=== PATIENT | male | born 1935 | race Caucasian/White ===

== ENCOUNTER → 2020-07-25 10:51 | Outpatient (CLI) | payer MEDICARE, SELFPAY ==
--- NOTE | 2020-07-25 | DI.US.S_ITS ---
PROCEDURE: US ABDOMEN COMPLETE INDICATIONS: GENERALIZED ABD PAIN TECHNIQUE: Real-time scanning was performed of the abdominal and retroperitoneal organs, with image documentation. COMPARISON: [facility], , ABDOMEN ACUTE SERIES, 07/31/2017, 20:19. FINDINGS: Liver: Liver is normal in size. There is a 9 millimeter echogenic lesion seen within the right lobe of the liver. There is a simple appearing cyst seen within the left lobe of the liver that measures up to 12 millimeters. The liver overall demonstrates a coarsened appearance. Gallbladder: No findings of gallstones or sludge are seen. The gallbladder wall is not thickened, measuring 3 mm or less. Incidental note is made of gallbladder wall adenomyomatosis. No specific pericholecystic fluid is seen. The sonographic Swanson sign is negative. Biliary ducts: Intrahepatic bile ducts are non-dilated. Extrahepatic bile duct caliber measures 4 mm. Normal is 6-7 mm or less in diameter, or 10 mm or less post-cholecystectomy. Pancreas: Visualized portions of the pancreas are sonographically normal. Spleen: Spleen is normal in size and homogeneous in echotexture. Kidneys: Kidneys are normal in size and echotexture. Right kidney measures 10.8 cm long; left kidney measures 11.1 cm long. No hydronephrosis. There is a 7 millimeter stone seen involving the right kidney. A 4 millimeter stone is seen involving the left kidney. No solid masses. However, the kidneys demonstrate a lobulated appearance. Aorta: Visualized aorta is normal in caliber at less than 3 cm. Iliacs: Proximal common iliac arteries are normal in caliber at less than 2.5 cm. IVC: Intrahepatic inferior vena cava is patent. Miscellaneous: No free abdominal fluid. IMPRESSION: The gallbladder demonstrates a normal sonographic appearance. No biliary dilatation is seen. Non-obstructing bilateral renal stones are seen. Lobulated kidneys are noted, without focal masses seen. Within the right liver, there is a 9 millimeter echogenic lesion, which likely represents a hemangioma. A 12 millimeter cyst is also seen left. Dictated by: Sanjiv Hicks M.D. on 07/25/2020 at 12:01 Approved by: Sanjiv Hicks M.D. on 07/25/2020 at 12:04
== END ==
PROVIDERS: PCP Family Medicine; Referring Provider Family Medicine; Visit Provider Family Medicine
DX: R10.84 Generalized abdominal pain (principal); N20.0 Calculus of kidney; K76.89 Other specified diseases of liver
CPT/HCPCS: 76700

== ENCOUNTER → 2020-08-30 11:25 | Outpatient (CLI) | payer MEDICARE, SELFPAY ==
[2020-08-02 14:13] VITALS: BMI 25.2
[2020-08-30 11:58] LABS: BUN Creatinine Ratio 13.4 (6-22); Blood Urea Nitrogen 16 mg/dL (9-20); Estimated Glomerular Filt Rate 58.1 mL/min (>60)
--- NOTE | 2020-08-30 12:41 | DI.CT.S_ITS ---
PROCEDURE: CT ABDOMEN PELVIS W CON INDICATIONS: rule out pelvic abscess TECHNIQUE: After the administration of intravenous contrast, 5 mm thick sections acquired from the diaphragm to the symphysis. 5 mm coronal and sagittal reformats were acquired. For radiation dose reduction, the following was used: automated exposure control, adjustment of mA and/or kV according to patient size. COMPARISON: [facility], CT, CT ABDOMEN PELVIS WO CON, 08/02/2020, 9:13. FINDINGS: Image quality: Excellent. ABDOMEN: Lung bases: Lung bases are clear. Centrilobular emphysema is seen. Heart size is enlarged. Pacemaker leads are seen. Solid organs: Liver is normal in size . Multiple hypodense areas are seen scattered throughout liver parenchyma measures up to 2.5 cm in size in lateral segment of left hepatic lobe and up to 2.1 cm in size in lateral periphery of right hepatic lobe . Finding is consistent with extensive liver metastasis given patient's history of rectal cancer. Gallbladder is within normal limits. Biliary system is non dilated. Pancreas enhances normally. Spleen is normal in size and enhancement. No adrenal nodules. Kidneys demonstrate normal size and enhancement, without hydronephrosis. 7.5 mm nonobstructing right renal calculus is seen, unchanged from prior study. Peritoneum and bowel: There is a small to moderate size hiatal hernia. No evidence of bowel obstruction. Patient is status post interval rectal mass removal and diverting ileostomy placement in left lower quadrant abdomen. No evidence of bowel obstruction. No gross abnormal bowel wall thickening. No free fluid or free air. Nodes and vessels: No retroperitoneal or mesenteric adenopathy by size criteria. Aorta and inferior vena cava are normal in size. Miscellaneous: Postsurgical changes are noted in anterior abdominal and pelvic wall. PELVIS: Genitourinary: Mild diffuse bladder wall thickening is again seen unchanged from prior study. No definite discrete bladder wall mass. Miscellaneous: No inguinal hernias or adenopathy. Brachytherapy seeds are noted in enlarged prostate gland. Bones: No suspicious bony lesions. No vertebral body compression fractures. Grade 1 anterolisthesis of L4 on L5 is seen. IMPRESSION: 1. Patient is status post interval resection of previously noted rectal mass with postsurgical changes. Diverting ileostomy is noted in left lower quadrant. No evidence of bowel obstruction. No free fluid or free air. 2. Numerous hypodense lesions scattered throughout liver parenchyma as described above, consistent with extensive liver metastases. 3. Nonobstructing stone in right kidney. No hydronephrosis. Mild diffuse bladder wall thickening. No discrete bladder wall mass. Brachytherapy seeds within prostate gland. Dictated by: Brad Herbert M.D. on 08/30/2020 at 12:04 Approved by: Brad Herbert M.D. on 08/30/2020 at 12:21
== END ==
PROVIDERS: PCP Family Medicine; Referring Provider Family Medicine; Visit Provider Surgery
DX: K91.89 Other postprocedural complications and disorders of digestive system (principal); K76.9 Liver disease, unspecified; N20.0 Calculus of kidney; J43.2 Centrilobular emphysema; K44.9 Diaphragmatic hernia without obstruction or gangrene; Z93.2 Ileostomy status; Z85.048 Personal history of other malignant neoplasm of rectum, rectosigmoid junction, and anus
CPT/HCPCS: 36415; 74177; 82565; 84520; Q9967

== ENCOUNTER 2020-10-02 14:20 | Observation (INO) | payer MEDICARE, SELFPAY ==
[2020-08-02 14:13] VITALS: BMI 25.2
[2020-10-02] VITALS (15 sets, daily range): BP systolic 116–160; BP diastolic 58–73; PULSE 66–93; RESP 14–31; TEMP 35.9–36.4; O2SAT 91–100; BMI 25.8; BMI 23.8
--- NOTE | 2020-10-02 | DI.CT.S_ITS ---
PROCEDURE: CT ABDOMEN PELVIS W CON INDICATIONS: r/o intra abdominal abscess TECHNIQUE: After the administration of intravenous contrast, 5 mm thick sections acquired from the diaphragm to the symphysis. 5 mm coronal and sagittal reformats were acquired. For radiation dose reduction, the following was used: automated exposure control, adjustment of mA and/or kV according to patient size. COMPARISON: [facility], CT, CT ABDOMEN PELVIS WO CON, 08/02/2020, 9:13. Merged With [facility], CT, CT ABDOMEN PELVIS W CON, 08/30/2020, 12:25. FINDINGS: Image quality: Excellent. ABDOMEN: Lung bases: There is mild atelectasis in the lung bases. Heart size is mildly enlarged. Pacemaker leads redemonstrated in the right ventricle. Solid organs: Multiple hypoattenuating masses are redemonstrated within the liver consistent with metastatic disease. These demonstrate interval increase in size, with a circulation representative mass in segment 2 of the left lobe measuring up to 3.3 x 3.3 cm compared to 2.8 x 2.6 cm previously. The gallbladder appears within normal limits without calcified gallstones. Biliary system is non-dilated. Pancreas enhances normally. No peripancreatic fat stranding or fluid collections. No pancreatic duct dilatation. The spleen is normal in size. No adrenal nodules. Kidneys demonstrate no hydronephrosis. There is a nonobstructing stone within the right kidney measuring up to 8 mm. Peritoneum and bowel: Postsurgical changes are redemonstrated status post distal colonic resection with a diverting left lower quadrant colostomy. The rectal stump demonstrates wall thickening and inflammatory fat stranding. There is an adjacent presacral thick-walled loculated collection suggestive of an abscess measuring approximately 4.2 x 2.6 cm in dimension. The fluid component within the collection is smaller in size compared to the prior study, now measuring 1.2 x 0.7 cm in transverse dimension. There is an adjacent loop of the distal ileum contiguous with this collection which demonstrates wall thickening. There is associated dilatation of the distal small bowel with small bowel fecalization compatible with a partial functional obstruction. There is extensive associated fat stranding. Nodes and vessels: No retroperitoneal or mesenteric adenopathy by size criteria. Aorta and inferior vena cava are normal in size. Miscellaneous: No ventral hernias. PELVIS: Genitourinary: There is mild bladder wall thickening posteriorly. Multiple radiation seeds are demonstrated within the prostate. Miscellaneous: No inguinal hernias or adenopathy. Bones: No suspicious bony lesions. No vertebral body compression fractures. IMPRESSION: 1. Postsurgical changes redemonstrated status post partial resection of the distal colon with a diverting left lower quadrant colostomy. 2. Rectal stump demonstrates inflammatory wall thickening and appears contiguous with a presacral thick-walled collection suggesting fistulization with a presacral abscess. Inflammatory changes involve a loop of the distal ileum with an associated partial functional obstruction. 3. Multiple hepatic mass lesions consistent with metastatic disease demonstrate interval increase in size. Dictated by: Joaquín Olson M.D. on 10/02/2020 at 19:03 Approved by: Joaquín Olson M.D. on 10/02/2020 at 19:21
--- NOTE | 2020-10-02 15:52 | PC.NURSE ---
Pt has recent colostomy. Per son, about two months ago. Reports intermittent bleeding from rectum ever since. Changes kamini pad 3-4 times a day. Doesn't state that anything increases or decreases bleeding. Does take coumadin daily. Denies pain. Ostomy with stool present. Denies changes in stool. Reports feeling off or different. I can't really describe it. Denies dizziness. Spouse in March and also recently lost a close friend. Feels his life has changed since this pointing to ostomy. And not as active as he used to be.
[2020-10-02 16:12] LABS: Add Manual Diff / Slide Review NO; Basophils Absolute Auto 100 /uL (0-100); Basophils Percent Auto 0.8 % (0-2); Eosinophils Absolute Auto 100 /uL (0-450); Eosinophils Percent Auto 0.7 % (2-4); Hematocrit 29.9 % (41-53); Hemoglobin 9.4 g/dL (13.5-17.5); Lymphocytes Absolute Auto 1600 /uL (1100-4500); Mean Corpuscular HGB Conc 31.4 % (30-36); Mean Corpuscular Volume 82.6 fL (80-100); Monocytes Absolute Auto 1200 /uL (0-900); Monocytes Percent Auto 8.5 % (3-14); Neutrophils Absolute Auto 11600 /uL (1500-7000); Platelet Count 478 X10^3/uL (150-400); Red Blood Cell Count 3.63 X10^6/uL (4.5-5.9); Red Cell Distribution Width 16.7 % (11.6-14.8); White Blood Cell Count 14.7 X10^3/uL (4.5-11.0)
--- NOTE | 2020-10-02 16:14 | ED_ITS ---
HPI - GI Bleed <NIXON Cardoso - Last Filed: 10/02/20 20:21> General Chief complaint: GI Bleed Stated complaint: POST SURGERY PROBLEMS SEVERE RECTAL BLEEDING Time Seen by Provider: 10/02/20 15:25 Source: patient Mode of arrival: Wheelchair Limitations: no limitations History of Present Illness HPI Narrative: This is a 85 year male, former smoker, who has past medical history significant for bradycardia, cardiac pacer, bleeding rectal cancer and resection surgery with colostomy on 08/03/[address] Douglas presents to ED with family with chief complain of increased generalized weakness,and feeling strange. Patient reports he has bright red rectal leakage since the surgery. He is currently taking Coumadin with history of AFib and pacer. He reports he had lost his in March and also recently lost his good friend from a fall. Patient reports changes his Christal pad as about 3-4 times a day and today he had changed at 9:30 a.m. this morning before coming into ED. the amount of bleeding from rectal varies. Patient denies chest pain, dyspnea, fever, chills, nausea, vomiting, abdominal pain, or changes in urinary symptoms. Patient has chronic urinary frequency. Patient denies any significant pain at this time. Patient reports normal stools in colostomy without bleeding. Related Data Home Medications Medication Instructions Recorded Confirmed finasteride 5 mg PO DAILY 08/02/20 10/02/20 latanoprost 1 drp EYE-BOTH DAILY 10/02/20 10/02/20 Previous Rx's Medication Instructions Recorded atorvastatin [Lipitor] 10 mg PO HS #90 tab 12/12/16 amoxicillin-pot clavulanate 1 tab PO BID #14 tab 10/03/20 [Augmentin] morphine 5 mg PO Q4H PRN #100 ml 10/03/20 ondansetron 4 mg PO Q8H PRN #10 tab 10/03/20 Allergies Allergy/AdvReac Type Severity Reaction Status Date / Time carvedilol [CARVEDILOL] Allergy Mild Verified 10/02/20 14:34 Review of Systems <NIXON Cardoso - Last Filed: 10/02/20 20:21> Review of Systems Narrative: General: Denies fever, chills, (+) fatigue, (+) malaise, sweats. HEENT: Denies sinus pain, ear pain, sore throat, difficulty swallowing, dizziness. Respiratory: Denies dyspnea, cough, wheezing, hemoptysis, sputum. Cardiovascular: Denies chest pain, palpitations, orthopnea, edema. Gastrointestinal: See HPI : Denies dysuria, frequency, incontinence, hematuria, urinary retention. Musculoskeletal: Denies weakness, joint pain or bony pain. Skin: Denies rash, skin lesions, or other. Neurologic: Denies weakness, headache, numbness, change in speech, confusion, seizures, incoordination. Psychiatric: No concerning psychosocial issues. 12-point review of systems is negative except for those stated above. Patient History <NIXON Cardoso - Last Filed: 10/02/20 20:21> Medical History (Updated 10/03/20 @ 01:53 by NIXON Rivera) Coronary artery disease (05/24/15) rat exterminator current use of anticoagulant therapy (01/30/16) Pacemaker (Acute) Stage 3 chronic kidney disease (01/08/16) Surgical History (Updated 10/03/20 @ 01:53 by NIXON Rivera) Hx of ileostomy (Acute) Family History (Updated 10/03/20 @ 01:56 by NIXON Rivera) Father CVA (cerebral vascular accident) Mother Lung disease Social History household members: children Smoking Status: Former smoker alcohol intake: never Smoking Status: Former smoker alcohol intake frequency: holidays/special occasions only Substance Use Type: does not use Exam <NIXON Cardoso - Last Filed: 10/02/20 20:21> Narrative Exam Narrative: GEN: Alert, oriented x 3, thin appearing, and in no acute distress. Head: Normal cephalic, atraumatic. No scalp or temporal tenderness, palpable mass or rash. EYES: Pupils are equal, round, and reactive to light and accommodation. Extraocular muscles are intact bilaterally. There is no subconjunctival hemorrhage, exudate and sclera non-icteric. ENT: Slight Hearing difficulty. Nose without bleeding, purulent discharge or deviation. Facial sinuses nontender to palpate. Mucous membrane moist, no mucosal lesion. Throat without erythema, tonsillar hypertrophy or exudate. Uvula in midline, airway patent. Neck: Trachea in midline. No JVD, non-tender without lymphadenopathy. No masses or thyroid megaly. Supple, non-tender and no meningeal signs. CARDIAC: Normal regular rate and rhythm without murmurs, gallops, or rubs. No chest wall tenderness. No peripheral edema, cyanosis or pallor. Capillary refill is less than 2 seconds. RESPIRATORY: Lungs are clear to auscultate bilaterally. No cough, wheezes, rales, or rhonchi. No stridor, respiratory distress, increase work of breathing, or accessary muscle used. ABD: Abdomen soft, nontender and non-distended. No guarding or rebound tender ness to palpate. Colostomy in left quadrant abdomen semi filled with soft brown stool. Bowel sounds are normal in all 4 quadrants. There is no palpable masses or organomegaly. Adult incontinence pad moderately saturated with red blood without clots. EXT: Full painless ROM of all extremities with no loss of sensation, strength, effusion or edema. SKIN: Warm, dry, normal color for patient. No erythema, lesions or rash over visible areas. BACK: Nontender without deformity or crepitance. No flank tenderness. NEUROLOGICAL: Alert and oriented to place, time and person. Sensation and motor function intact bilaterally. No facial droops, dysphasia. PSYCHIATRIC: Good judgement and reason, without hallucinations, abnormal affect or abnormal behaviors during the examination. Patient is not suicidal. Initial Vital Signs Initial Vital Signs: Vital Signs Temperature 97.1 F L 10/02/20 14:28 Pulse Rate 77 10/02/20 14:28 Respiratory Rate 20 10/02/20 14:28 Blood Pressure 159/67 H 10/02/20 14:28 Pulse Oximetry 91 10/02/20 14:28 <Krystin Torres MD - Last Filed: 10/10/20 04:06> Initial Vital Signs Initial Vital Signs: Vital Signs Temperature 97.1 F L 10/02/20 14:28 Pulse Rate 77 10/02/20 14:28 Respiratory Rate 20 10/02/20 14:28 Blood Pressure 159/67 H 10/02/20 14:28 Pulse Oximetry 91 10/02/20 14:28 Scores <NIXON Cardoso - Last Filed: 10/02/20 20:21> GCS Lexi coma scale eye opening: Spontaneous [place] coma scale verbal response: Orientated [place] coma scale motor response: Obey commands Lexi coma scale total score: 15 qSOFA Altered Mental Status (GCS <15): No Respiratory rate greater than/equal to 22: No Systolic blood pressure less than or equal to 100: No qSOFA Total: 0 0-1 Not High Risk 1-3 High risk Course <Ortiz McelroyDeidraNIXON - Last Filed: 10/02/20 20:21> Orders Ordered: Discontinued Medications Acetaminophen (Tylenol) 650 mg PO Q6HR PRN PRN Reason: Fever/Mild Pain (1-3) Amlodipine Besylate (Norvasc) 10 mg PO DAILY [facility] Last Admin: 10/03/20 10:53 Dose: Not Given Documented by: Admin: 10/02/20 22:19 Dose: 10 mg Documented by: MARISSA Atorvastatin Calcium (Lipitor) 10 mg PO BEDTIME [facility] Last Admin: 10/02/20 22:19 Dose: Not Given Documented by: MARISSA Finasteride (Proscar) 5 mg PO DAILY [facility] Last Admin: 10/03/20 09:15 Dose: 5 mg Documented by: BUSTER Sodium Chloride (Normal Saline 0.9%) 1,000 mls @ 125 mls/hr IV CONT [facility] Last Admin: 10/03/20 04:29 Dose: 125 mls/hr Documented by: Infusion: 10/03/20 04:28 Dose: 0 mls/hr Documented by: Admin: 10/02/20 16:57 Dose: 125 mls/hr Documented by: OSMANY Phytonadione 5 mg/ Dextrose 50.5 mls @ 101 mls/hr IV NOW ONE Stop: 10/02/20 19:36 Last Infusion: 10/02/20 21:04 Dose: 101 mls/hr Documented by: Admin: 10/02/20 19:53 Dose: 101 mls/hr Documented by: CHRISTIANO Piperacillin/Tazobactam/Dextrose (Zosyn) 3.375 gm in 50 mls @ 100 mls/hr IV NOW ONE Stop: 10/02/20 20:20 Last Admin: 10/03/20 00:01 Dose: Not Given Documented by: RAGHAVENDRA Piperacillin/Tazobactam/Dextrose (Zosyn) 3.375 gm in 50 mls @ 100 mls/hr IV Q6H [facility] Piperacillin/Tazobactam/Dextrose (Zosyn) 3.375 gm in 50 mls @ 100 mls/hr IV Q6H [facility] Last Admin: 10/03/20 11:57 Dose: 100 mls/hr Documented by: Infusion: 10/03/20 07:00 Dose: 100 mls/hr Documented by: Admin: 10/03/20 04:50 Dose: 100 mls/hr Documented by: Infusion: 10/03/20 00:10 Dose: 0 mls/hr Documented by: Admin: 10/02/20 23:40 Dose: 100 mls/hr Documented by: RAGHAVENDRA Latanoprost (Xalatan 0.005% Ophth) 1 drops EYE-BOTH DAILY [facility] Latanoprost (Xalatan 0.005% Ophth) 1 drops EYE-BOTH BEDTIME [facility] Lisinopril (Zestril) 40 mg PO DAILY [facility] Last Admin: 10/03/20 10:53 Dose: Not Given Documented by: Admin: 10/02/20 22:19 Dose: 40 mg Documented by: MARISSA Ondansetron HCl (Zofran) 4 mg IV Q8HR PRN PRN Reason: Nausea And Vomiting Sodium Chloride (Normal Saline 0.9% Flush) 10 ml IV PRN PRN PRN Reason: Flush Sodium Chloride (Normal Saline 0.9% Flush) 10 ml IV BID [facility] Reevaluation(s) Reevaluation #1: Lab called with elevated INR of 6.9. According to EHR, patient is taking Coumadin 5 mg daily. Time: 16:23 Reevaluation #2: Dr. Meade at bedside and speaking with the patient and son. Time: 17:11 Reevaluation #3: Dr. Meade requesting patient is to be admitted to the hospital under medical service with supratherapeutic anticoagulant, past weakness, rectal bleeding, consult to social service and possibly for hospice service. Time: 18:00 Additional Reevaluation(s): Consulted hospitalist, NIXON Yarbrough, informed patient was consulted Dr. Meade and informed patient is not surgical candidate at this time. Hospitalist requesting to confirm with Dr. Meade about CT result on pre sacral abscess with fistulization and patient is not surgical candidate again. Also, Recommended vitamin K IV 5 mg for supratherapeutic INR. Consultations Consultation #1: Dr. Meade contated again with CT findings and he recommended Zosyn 3.375 g IV administration. He confirmed that patient is not surgical candidate. Will relay this information to the Hospitalist. Time: 19:53 Consultation #2: NIXON Yarbrough contacted again with the above information. She kindly accepted patient care as an inpatient with INR recheck, generalize weakness, Social work consult with a goal of comfort care. Time: 20:00 Vital Signs Vital signs: Vital Signs - 8 hr 10/02/20 14:28 10/02/20 15:30 10/02/20 16:00 Temperature 97.1 F L Pulse Rate 77 93 H 76 Respiratory Rate 20 17 31 H Blood Pressure 159/67 H 137/68 Pulse Oximetry 91 98 100 10/02/20 16:30 10/02/20 17:00 Temperature Pulse Rate 66 82 Respiratory Rate 14 29 H Blood Pressure 146/70 H Pulse Oximetry 100 99 <Krystin Torres MD - Last Filed: 10/10/20 04:06> Orders Ordered: Discontinued Medications Acetaminophen (Tylenol) 650 mg PO Q6HR PRN PRN Reason: Fever/Mild Pain (1-3) Amlodipine Besylate (Norvasc) 10 mg PO DAILY [facility] Last Admin: 10/03/20 10:53 Dose: Not Given Documented by: Admin: 10/02/20 22:19 Dose: 10 mg Documented by: MARISSA Atorvastatin Calcium (Lipitor) 10 mg PO BEDTIME [facility] Last Admin: 10/02/20 22:19 Dose: Not Given Documented by: MARISSA Finasteride (Proscar) 5 mg PO DAILY [facility] Last Admin: 10/03/20 09:15 Dose: 5 mg Documented by: BUSTER Sodium Chloride (Normal Saline 0.9%) 1,000 mls @ 125 mls/hr IV CONT [facility] Last Admin: 10/03/20 04:29 Dose: 125 mls/hr Documented by: Infusion: 10/03/20 04:28 Dose: 0 mls/hr Documented by: Admin: 10/02/20 16:57 Dose: 125 mls/hr Documented by: OSMANY Phytonadione 5 mg/ Dextrose 50.5 mls @ 101 mls/hr IV NOW ONE Stop: 10/02/20 19:36 Last Infusion: 10/02/20 21:04 Dose: 101 mls/hr Documented by: Admin: 10/02/20 19:53 Dose: 101 mls/hr Documented by: CHRISTIANO Piperacillin/Tazobactam/Dextrose (Zosyn) 3.375 gm in 50 mls @ 100 mls/hr IV NOW ONE Stop: 10/02/20 20:20 Last Admin: 10/03/20 00:01 Dose: Not Given Documented by: RAGHAVENDRA Piperacillin/Tazobactam/Dextrose (Zosyn) 3.375 gm in 50 mls @ 100 mls/hr IV Q6H [facility] Piperacillin/Tazobactam/Dextrose (Zosyn) 3.375 gm in 50 mls @ 100 mls/hr IV Q6H [facility] Last Admin: 10/03/20 11:57 Dose: 100 mls/hr Documented by: Infusion: 10/03/20 07:00 Dose: 100 mls/hr Documented by: Admin: 10/03/20 04:50 Dose: 100 mls/hr Documented by: Infusion: 10/03/20 00:10 Dose: 0 mls/hr Documented by: Admin: 10/02/20 23:40 Dose: 100 mls/hr Documented by: RAGHAVENDRA Latanoprost (Xalatan 0.005% Ophth) 1 drops EYE-BOTH DAILY [facility] Latanoprost (Xalatan 0.005% Ophth) 1 drops EYE-BOTH BEDTIME [facility] Lisinopril (Zestril) 40 mg PO DAILY [facility] Last Admin: 10/03/20 10:53 Dose: Not Given Documented by: Admin: 10/02/20 22:19 Dose: 40 mg Documented by: MARISSA Ondansetron HCl (Zofran) 4 mg IV Q8HR PRN PRN Reason: Nausea And Vomiting Sodium Chloride (Normal Saline 0.9% Flush) 10 ml IV PRN PRN PRN Reason: Flush Sodium Chloride (Normal Saline 0.9% Flush) 10 ml IV BID [facility] Vital Signs Vital signs: Vital Signs - 8 hr 11/03/20 14:28 10/02/20 15:30 10/02/20 16:00 Temperature 97.1 F L Pulse Rate 77 93 H 76 Respiratory Rate 20 17 31 H Blood Pressure 159/67 H 137/68 Pulse Oximetry 91 98 100 10/02/20 16:30 10/02/20 17:00 Temperature Pulse Rate 66 82 Respiratory Rate 14 29 H Blood Pressure 146/70 H Pulse Oximetry [address] [facility] - GI Bleed <NIXON Cardoso - Last Filed: 10/02/20 20:21> Differential Diagnosis Differential diagnosis: Likely Lower gastrointestinal hemorrhage, hematochezia and other (Rectal surgery dehiscence, supra therapeutic INR, electrolytes imbalance, anemia, post surgical infection) Medical Records Attestation: I reviewed the patient's medical records. Lab Data Attestation: I reviewed the patient's lab results. Result diagrams: 10/03/20 05:18 10/03/20 05:18 Labs: Lab Results 10/02/20 10/02/20 10/02/20 Range/Units 15:35 15:35 15:35 WBC 14.7 H (4.5-11.0) X10^3/uL RBC 3.63 L (4.5-5.9) X10^6/uL Hgb 9.4 L (13.5-17.5) g/dL Hct 29.9 L (41-53) % MCV 82.6 (80-100) fL MCH 26.0 (26-34) PG MCHC 31.4 (30-36) % RDW 16.7 H (11.6-14.8) % Plt Count 478 H (150-400) X10^3/uL Neut % (Auto) 79.0 H (50-75) % Lymph % (Auto) 11.0 L (25-40) % [place] % (Auto) 8.5 (3-14) % Eos % (Auto) 0.7 L (2-4) % Baso % (Auto) 0.8 (0-2) % Neut # (Auto) 97865 H (7341-0351) /uL Lymph # (Auto) 1600 (0396-4327) /uL [place] # (Auto) 1200 H (0-900) /uL Eos # (Auto) 100 (0-450) /uL Baso # (Auto) 100 (0-100) /uL PT 78.6 H (10.1-12.7) SECONDS INR 6.9 H* (0.9-1.3) Sodium 137 (137-145) mmol/L Potassium 4.0 (3.4-5.1) mmol/L Chloride 102 (98-107) mmol/L Carbon Dioxide 26 (22-32) mmol/L BUN 18 (9-20) mg/dL Creatinine 1.10 (0.66-1.25) mg/dL Estimated GFR > 60.0 (>60) mL/min BUN/Creatinine Ratio 16.4 (6-22) Glucose 105 (80-110) mg/dL Lactate (0.7-2.1) mmol/L Calcium 9.1 (8.4-10.2) mg/dL Total Bilirubin 0.4 (0.2-1.3) mg/dL AST 31 (17-59) IU/L ALT 15 (<50) IU/L Alkaline Phosphatase 143 H (38-126) U/L Total Creatine Kinase (55-170) U/L CK-MB (CK-2) CK-MB (CK-2) Rel Index Troponin I (0.01-0.034) ng/mL Total Protein 8.1 (6.3-8.2) g/dL Albumin 3.8 (3.5-5.0) g/dL Globulin 4.3 H (1.7-4.1) g/dL Albumin/Globulin Ratio 0.9 L (1.0-2.8) Lipase 93 (23-300) U/L COVID-19 PCR (Negative) 10/02/20 10/02/20 10/02/20 Range/Units 15:35 15:35 18:26 WBC (4.5-11.0) X10^3/uL RBC (4.5-5.9) X10^6/uL Hgb (13.5-17.5) g/dL Hct (41-53) % MCV (80-100) fL MCH (26-34) PG MCHC (30-36) % RDW (11.6-14.8) % Plt Count (150-400) X10^3/uL Neut % (Auto) (50-75) % Lymph % (Auto) (25-40) % [place] % (Auto) (3-14) % Eos % (Auto) (2-4) % Baso % (Auto) (0-2) % Neut # (Auto) (1948-9224) /uL Lymph # (Auto) (2984-9457) /uL [place] # (Auto) (0-900) /uL Eos # (Auto) (0-450) /uL Baso # (Auto) (0-100) /uL PT (10.1-12.7) SECONDS INR (0.9-1.3) Sodium (137-145) mmol/L Potassium (3.4-5.1) mmol/L Chloride (98-107) mmol/L Carbon Dioxide (22-32) mmol/L BUN (9-20) mg/dL Creatinine (0.66-1.25) mg/dL Estimated GFR (>60) mL/min BUN/Creatinine Ratio (6-22) Glucose (80-110) mg/dL Lactate 2.1 1.1 (0.7-2.1) mmol/L Calcium (8.4-10.2) mg/dL Total Bilirubin (0.2-1.3) mg/dL AST (17-59) IU/L ALT (<50) IU/L Alkaline Phosphatase (38-126) U/L Total Creatine Kinase 63 (55-170) U/L CK-MB (CK-2) TNP CK-MB (CK-2) Rel Index TNP Troponin I < 0.012 (0.01-0.034) ng/mL Total Protein (6.3-8.2) g/dL Albumin (3.5-5.0) g/dL Globulin (1.7-4.1) g/dL Albumin/Globulin Ratio (1.0-2.8) Lipase (23-300) U/L COVID-19 PCR (Negative) 10/02/20 Range/Units 18:40 WBC (4.5-11.0) X10^3/uL RBC (4.5-5.9) X10^6/uL Hgb (13.5-17.5) g/dL Hct (41-53) % MCV (80-100) fL MCH (26-34) PG MCHC (30-36) % RDW (11.6-14.8) % Plt Count (150-400) X10^3/uL Neut % (Auto) (50-75) % Lymph % (Auto) (25-40) % [place] % (Auto) (3-14) % Eos % (Auto) (2-4) % Baso % (Auto) (0-2) % Neut # (Auto) (8839-8284) /uL Lymph # (Auto) (8756-0326) /uL [place] # (Auto) (0-900) /uL Eos # (Auto) (0-450) /uL Baso # (Auto) (0-100) /uL PT (10.1-12.7) SECONDS INR (0.9-1.3) Sodium (137-145) mmol/L Potassium (3.4-5.1) mmol/L Chloride (98-107) mmol/L Carbon Dioxide (22-32) mmol/L BUN (9-20) mg/dL Creatinine (0.66-1.25) mg/dL Estimated GFR (>60) mL/min BUN/Creatinine Ratio (6-22) Glucose (80-110) mg/dL Lactate (0.7-2.1) mmol/L Calcium (8.4-10.2) mg/dL Total Bilirubin (0.2-1.3) mg/dL AST (17-59) IU/L ALT (<50) IU/L Alkaline Phosphatase (38-126) U/L Total Creatine Kinase (55-170) U/L CK-MB (CK-2) CK-MB (CK-2) Rel Index Troponin I (0.01-0.034) ng/mL Total Protein (6.3-8.2) g/dL Albumin (3.5-5.0) g/dL Globulin (1.7-4.1) g/dL Albumin/Globulin Ratio (1.0-2.8) Lipase (23-300) U/L COVID-19 PCR Negative (Negative) Imaging Data CT scan - abdomen/pelvis: Radiologist's Impression: [address] [address] [address] Scan Report Signed Patient: Vin Murray MARCO#: [id number] : 5Acct:[id number] Age/Sex: 85 / MDate of Service: 10/02/20 Loc: ED Accession Number: [id number] Procedure: CT abdomen pelvis w con Ordering Provider: Viral Meade MD PROCEDURE: CT ABDOMEN PELVIS W CON INDICATIONS: r/o intra abdominal abscess TECHNIQUE: After the administration of intravenous contrast, 5 mm thick sections acquired from the diaphragm to the symphysis. 5 mm coronal and sagittal reformats were acquired. For radiation dose reduction, the following was used: automated exposure control, adjustment of mA and/or kV according to patient size. COMPARISON: [facility], CT, CT ABDOMEN PELVIS WO CON, 08/02/2020, 9:13. [facility], CT, CT ABDOMEN PELVIS W CON, 08/30/2020, 12:25. FINDINGS: Image quality: Excellent. ABDOMEN: Lung bases: There is mild atelectasis in the lung bases. Heart size is mildly enlarged. Pacemaker leads redemonstrated in the right ventricle. Solid organs: Multiple hypoattenuating masses are redemonstrated within the liver consistent with metastatic disease. These demonstrate interval increase in size , with a public service representative mass in segment 2 of the left lobe measuring up to 3.3 x 3.3 cm compared to 2.8 x 2.6 cm previously. The gallbladder appears within normal limits without calcified gallstones. Biliary system is non-dilated. Pancreas enhances normally. No peripancreatic fat stranding or fluid collections. No pancreatic duct dilatation. The spleen is normal in size. No adrenal nodules. Kidneys demonstrate no hydronephrosis. There is a nonobstructing stone within the right kidney measuring up to 8 mm. Peritoneum and bowel: Postsurgical changes are redemonstrated status post dis natalie colonic resection with a diverting left lower quadrant colostomy. The rectal stump demonstrates wall thickening and inflammatory fat stranding. There is an adjacent presacral thick-walled loculated collection suggestive of an abscess measuring approximately 4.2 x 2.6 cm in dimension. The fluid component within the collection is smaller in size compared to the prior study, now measuring 1.2 x 0.7 cm in transverse dimension. There is an adjacent loop of the distal ileum contiguous with this collection which demonstrates wall thickening. There is associated dilatation of the distal small bowel with small bowel fecalization compatible with a partial functional obstruction. There is extensive associated fat stranding. Nodes and vessels: No retroperitoneal or mesenteric adenopathy by size criteria. Aorta and inferior vena cava are normal in size. Miscellaneous: No ventral hernias. PELVIS: Genitourinary: There is mild bladder wall thickening posteriorly. Multiple ra diation seeds are demonstrated within the prostate. Miscellaneous: No inguinal hernias or adenopathy. Bones: No suspicious bony lesions. No vertebral body compression fractures. IMPRESSION: 1. Postsurgical changes redemonstrated status post partial resection of the distal colon with a diverting left lower quadrant colostomy. 2. Rectal stump demonstrates inflammatory wall thickening and appears contiguous with a presacral thick-walled collection suggesting fistulization with a presacral abscess. Inflammatory changes involve a loop of the distal ileum with an associated partial functional obstruction. 3. Multiple hepatic mass lesions consistent with metastatic disease demonstrate interval increase in size. Dictated by: Joaquín Olson M.D. on 10/02/2020 at 19:03 Approved by: Joaquín Olson M.D. on 10/02/2020 at 19:21 ECG Data Attestation: I personally reviewed and interpreted this ECG as follows: Prior ECG tracings: available for review Interpretation: Atrial fibrillation rate at 66. Ventrically paced. Right dominant axis. ND interval *, QRS duration 97, QT/QTC 373/387. No acute ST changes. MDM Narrative Medical decision making narrative: This is a 85 year male who has past medical history significant for bleeding rectal cancer with large bowel obstruction who received emergent Leonel's procedure 2 months ago presents to ED with chronic small amount of rectal bleeding from the rectal stump possibly from dehiscence presents to ED with generalized weakness, rectal bleeding. Patient has well working colostomy. Patient is afebrile. No toxic appearing. CBC shows mild leukocytosis of 14.7 with H&H of 9.4/29.9 which is his baseline since the surgery. Initial lactate was 2.1. Platelet count is 478. Patient supratherapeutic INR of 6.9 and takes Coumadin 5 mg daily for atrial fibrillation and cardiac pacer in placement. Chemistry test is unremarkable with normal creatinine level of 1.1 and estimated GFR. Patient received gentle hydration in ED. post 3 hour lactate was redrawn with improvement as 1.1. Dr. Meade spoke with patient and son at the bedside prolonged time and consulted. It was decided that patient is not surgical candidate at this time and they are seeking social work consult and considering comfort care. CT-ABD/ Pelvis was ordred by Dr. Meade. 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 There is also inflammatory changes involved a loop of distal ileum with some associated partial functional obstruction. Multiple hepatic mass lesion consistent with metastastatic disease demonstrate interval increase in size compared to previous CT test. Dr. Meade and Hospitalist NIXON Yarbrough consulted. Patient is admitted under medical service with Dr. Meade's consult for supratherapeutic INR, failure to thrive, social work consult and the patient is not a candidate for surgical care this time. <Krystin Torres MD - Last Filed: 10/10/20 04:06> Lab Data Labs: Lab Results 10/02/20 10/02/20 10/02/20 Range/Units 15:35 15:35 15:35 WBC 14.7 H (4.5-11.0) X10^3/uL RBC 3.63 L (4.5-5.9) X10^6/uL Hgb 9.4 L (13.5-17.5) g/dL Hct 29.9 L (41-53) % MCV 82.6 (80-100) fL MCH 26.0 (26-34) PG MCHC 31.4 (30-36) % RDW 16.7 H (11.6-14.8) % Plt Count 478 H (150-400) X10^3/uL Neut % (Auto) 79.0 H (50-75) % Lymph % (Auto) 11.0 L (25-40) % [place] % (Auto) 8.5 (3-14) % Eos % (Auto) 0.7 L (2-4) % Baso % (Auto) 0.8 (0-2) % Neut # (Auto) 31593 H (5005-3564) /uL Lymph # (Auto) 1600 (9418-0678) /uL [place] # (Auto) 1200 H (0-900) /uL Eos # (Auto) 100 (0-450) /uL Baso # (Auto) 100 (0-100) /uL PT 78.6 H (10.1-12.7) SECONDS INR 6.9 H* (0.9-1.3) Sodium 137 (137-145) mmol/L Potassium 4.0 (3.4-5.1) mmol/L Chloride 102 (98-107) mmol/L Carbon Dioxide 26 (22-32) mmol/L BUN 18 (9-20) mg/dL Creatinine 1.10 (0.66-1.25) mg/dL Estimated GFR > 60.0 (>60) mL/min BUN/Creatinine Ratio 16.4 (6-22) Glucose 105 (80-110) mg/dL Lactate (0.7-2.1) mmol/L Calcium 9.1 (8.4-10.2) mg/dL Total Bilirubin 0.4 (0.2-1.3) mg/dL AST 31 (17-59) IU/L ALT 15 (<50) IU/L Alkaline Phosphatase 143 H (38-126) U/L Total Creatine Kinase (55-170) U/L CK-MB (CK-2) CK-MB (CK-2) Rel Index Troponin I (0.01-0.034) ng/mL Total Protein 8.1 (6.3-8.2) g/dL Albumin 3.8 (3.5-5.0) g/dL Globulin 4.3 H (1.7-4.1) g/dL Albumin/Globulin Ratio 0.9 L (1.0-2.8) Lipase 93 (23-300) U/L COVID-19 PCR (Negative) 10/02/20 10/02/20 10/02/20 Range/Units 15:35 15:35 18:26 WBC (4.5-11.0) X10^3/uL RBC (4.5-5.9) X10^6/uL Hgb (13.5-17.5) g/dL Hct (41-53) % MCV (80-100) fL MCH (26-34) PG MCHC (30-36) % RDW (11.6-14.8) % Plt Count (150-400) X10^3/uL Neut % (Auto) (50-75) % Lymph % (Auto) (25-40) % [place] % (Auto) (3-14) % Eos % (Auto) (2-4) % Baso % (Auto) (0-2) % Neut # (Auto) (3374-9408) /uL Lymph # (Auto) (9856-9650) /uL [place] # (Auto) (0-900) /uL Eos # (Auto) (0-450) /uL Baso # (Auto) (0-100) /uL PT (10.1-12.7) SECONDS INR (0.9-1.3) Sodium (137-145) mmol/L Potassium (3.4-5.1) mmol/L Chloride (98-107) mmol/L Carbon Dioxide (22-32) mmol/L BUN (9-20) mg/dL Creatinine (0.66-1.25) mg/dL Estimated GFR (>60) mL/min BUN/Creatinine Ratio (6-22) Glucose (80-110) mg/dL Lactate 2.1 1.1 (0.7-2.1) mmol/L Calcium (8.4-10.2) mg/dL Total Bilirubin (0.2-1.3) mg/dL AST (17-59) IU/L ALT (<50) IU/L Alkaline Phosphatase (38-126) U/L Total Creatine Kinase 63 (55-170) U/L CK-MB (CK-2) TNP CK-MB (CK-2) Rel Index TNP Troponin I < 0.012 (0.01-0.034) ng/mL Total Protein (6.3-8.2) g/dL Albumin (3.5-5.0) g/dL Globulin (1.7-4.1) g/dL Albumin/Globulin Ratio (1.0-2.8) Lipase (23-300) U/L COVID-19 PCR (Negative) 10/02/20 Range/Units 18:40 WBC (4.5-11.0) X10^3/uL RBC (4.5-5.9) X10^6/uL Hgb (13.5-17.5) g/dL Hct (41-53) % MCV (80-100) fL MCH (26-34) PG MCHC (30-36) % RDW (11.6-14.8) % Plt Count (150-400) X10^3/uL Neut % (Auto) (50-75) % Lymph % (Auto) (25-40) % [place] % (Auto) (3-14) % Eos % (Auto) (2-4) % Baso % (Auto) (0-2) % Neut # (Auto) (5140-8632) /uL Lymph # (Auto) (4427-6477) /uL [place] # (Auto) (0-900) /uL Eos # (Auto) (0-450) /uL Baso # (Auto) (0-100) /uL PT (10.1-12.7) SECONDS INR (0.9-1.3) Sodium (137-145) mmol/L Potassium (3.4-5.1) mmol/L Chloride (98-107) mmol/L Carbon Dioxide (22-32) mmol/L BUN (9-20) mg/dL Creatinine (0.66-1.25) mg/dL Estimated GFR (>60) mL/min BUN/Creatinine Ratio (6-22) Glucose (80-110) mg/dL Lactate (0.7-2.1) mmol/L Calcium (8.4-10.2) mg/dL Total Bilirubin (0.2-1.3) mg/dL AST (17-59) IU/L ALT (<50) IU/L Alkaline Phosphatase (38-126) U/L Total Creatine Kinase (55-170) U/L CK-MB (CK-2) CK-MB (CK-2) Rel Index Troponin I (0.01-0.034) ng/mL Total Protein (6.3-8.2) g/dL Albumin (3.5-5.0) g/dL Globulin (1.7-4.1) g/dL Albumin/Globulin Ratio (1.0-2.8) Lipase (23-300) U/L COVID-19 PCR Negative (Negative) Discharge Plan Departure Patient Disposition: Admitted As Inpatient Clinical Impression: Abscess of sacrum, Rectal malignant neoplasm, Supratherapeutic INR, Generalized weakness Discharge Date/Time: 10/02/20 20:00 Instructions: [facility], DI for Rectal Bleeding Referrals: Reuben Pisano MD [Primary Care Provider] - Admit Date/Time: 10/02/20 19:59 Admit Provider: Arlene Yarbrough <Krystin Torres MD - Last Filed: 10/10/20 04:06> Cosign ED Attending Cosignature Attestation: I was immediately available in the department for consultation throughout this patient's visit. I agree with documentation as above. Krystin Torres MD
[2020-10-02 16:18] LABS: Creatine Kinase 63 U/L (55-170); Lactate (Lactic Acid) 2.1 mmol/L (0.7-2.1)
[2020-10-02 16:19] LABS: Prothrombin Time 78.6 SECONDS (10.1-12.7)
[2020-10-02 16:20] LABS: INR 6.9 (0.9-1.3)
[2020-10-02 16:31] LABS: Troponin I < 0.012 ng/mL (0.01-0.034)
[2020-10-02] MEDS: SODIUM CHLORIDE 0.9% 1,000 ML 125 ML IV (16:57)
[2020-10-02 17:08] LABS: Alanine Aminotransferase 15 IU/L (<50); Albumin 3.8 g/dL (3.5-5.0); Albumin Globulin Ratio 0.9 (1.0-2.8); Alkaline Phosphatase 143 U/L (38-126); Aspartate Aminotransferase 31 IU/L (17-59); BUN Creatinine Ratio 16.4 (6-22); Bilirubin Total 0.4 mg/dL (0.2-1.3); Blood Urea Nitrogen 18 mg/dL (9-20); Calcium 9.1 mg/dL (8.4-10.2); Carbon Dioxide 26 mmol/L (22-32); Chloride 102 mmol/L (98-107); Estimated Glomerular Filt Rate > 60.0 mL/min (>60); Globulin 4.3 g/dL (1.7-4.1); Glucose 105 mg/dL (80-110); HEMOLYSIS < 15 (0-50); Lipase 93 U/L (23-300); Sodium 137 mmol/L (137-145); Total Protein 8.1 g/dL (6.3-8.2)
--- NOTE | 2020-10-02 18:01 | P.CONS_ITS ---
History of Present Illness Consult details Date Patient Seen: 10/02/20 Time Patient Seen: 18:04 Chief complaint: POST SURGERY PROBLEMS SEVERE RECTAL BLEEDING Narrative: 85-year-old man with metastatic rectal cancer seen in the emergency room for failure thrive. He underwent a emergent Leonel's procedure 2 months ago for a bleeding large bowel obstruction. Pathology demonstrates [id number]. Since that time he has had dehiscence of the rectal stump and chronic i ntermittent bleeding from the rectal stump. He is chronically anticoagulated for atrial fibrillation INR 6.9 today Hct 30. He feels increasingly weak, and his family is struggling with caregiving. He is eating colostomy is functioning. Meds Home Medications and Allergies Home Medications Medication Instructions Recorded Confirmed Type warfarin [Coumadin] 5 mg PO SEE INSTRUCTIONS #90 tab 10/06/16 08/30/20 Rx atorvastatin [Lipitor] 10 mg PO HS #90 tab 12/12/16 08/30/20 Rx lisinopril [Zestril] 40 mg PO QDAY #90 tab 06/03/17 08/30/20 Rx finasteride 5 mg PO DAILY 08/02/20 08/30/20 History metoclopramide HCl 10 mg PO Q8H PRN #30 tab 08/11/20 08/30/20 Rx ondansetron HCl 4 mg PO Q6H PRN #20 tab 08/11/20 08/30/20 Rx warfarin 5 mg PO QPM #30 tab 08/11/20 08/30/20 Rx amlodipine [Norvasc] 10 mg PO QDAY 10/02/20 10/02/20 History cholecalciferol (vitamin D3) 25 mcg PO DAILY 10/02/20 10/02/20 History [Vitamin D3] latanoprost 1 drp EYE-BOTH DAILY 10/02/20 10/02/20 History Allergies Allergy/AdvReac Type Severity Reaction Status Date / Time carvedilol [CARVEDILOL] Allergy Mild Verified 10/02/20 14:34 Review of Systems Review of Systems Narrative: A 10 point review of systems is negative except as noted in the HPI Exam Vital Signs (past 8 hours): - 10/02/20 14:28 10/02/20 15:30 10/02/20 16:00 Temperature 97.1 F L Pulse Rate 77 93 H 76 Respiratory Rate 20 17 31 H Blood Pressure 159/67 H 137/68 Pulse Oximetry 91 98 100 10/02/20 16:30 10/02/20 17:00 Temperature Pulse Rate 66 82 Respiratory Rate 14 29 H Blood Pressure 146/70 H Pulse Oximetry 100 99 Oxygen Delivery Method Room Air Narrative Exam Narrative: General elderly man alert oriented no acute distress Chest nonlabored respirations Cardiac irregular rhythm Abdomen soft nontender colostomy viable Extremities warm well perfused Objective Labs Result Diagrams: 10/02/20 15:35 10/02/20 15:35 Labs: Laboratory Results - last 24 hr 10/02/20 10/02/20 10/02/20 15:35 15:35 15:35 WBC 14.7 H RBC 3.63 L Hgb 9.4 L Hct 29.9 L MCV 82.6 MCH 26.0 MCHC 31.4 RDW 16.7 H Plt Count 478 H Neut % (Auto) 79.0 H Lymph % (Auto) 11.0 L [place] % (Auto) 8.5 Eos % (Auto) 0.7 L Baso % (Auto) 0.8 Neut # (Auto) 56592 H Lymph # (Auto) 1600 [place] # (Auto) 1200 H Eos # (Auto) 100 Baso # (Auto) 100 PT 78.6 H INR 6.9 H* Sodium 137 Potassium 4.0 Chloride 102 Carbon Dioxide 26 BUN 18 Creatinine 1.10 Estimated GFR > 60.0 BUN/Creatinine Ratio 16.4 Glucose 105 Lactate Calcium 9.1 Total Bilirubin 0.4 AST 31 ALT 15 Alkaline Phosphatase 143 H Total Creatine Kinase CK-MB (CK-2) CK-MB (CK-2) Rel Index Troponin I Total Protein 8.1 Albumin 3.8 Globulin 4.3 H Albumin/Globulin Ratio 0.9 L Lipase 93 10/02/20 10/02/20 15:35 15:35 WBC RBC Hgb Hct MCV MCH MCHC RDW Plt Count Neut % (Auto) Lymph % (Auto) [place] % (Auto) Eos % (Auto) Baso % (Auto) Neut # (Auto) Lymph # (Auto) [place] # (Auto) Eos # (Auto) Baso # (Auto) PT INR Sodium Potassium Chloride Carbon Dioxide BUN Creatinine Estimated GFR BUN/Creatinine Ratio Glucose Lactate 2.1 Calcium Total Bilirubin AST ALT Alkaline Phosphatase Total Creatine Kinase 63 CK-MB (CK-2) TNP CK-MB (CK-2) Rel Index TNP Troponin I < 0.012 Total Protein Albumin Globulin Albumin/Globulin Ratio Lipase Assessment & Plan Assessment and plan (1) Rectal cancer: Status: Acute Assessment & Plan narrative: 85-year-old man with metastatic rectal cancer status post Leonel's procedure with a rectal stump leak. A long discussion with the patient his son and daughter via telephone. I told him that in regards to the rectal stump he has a dehiscence here and this is likely secondary to the fact that it has radiated tissue and has impaired healing. Surgical revision of the rectal stump could be attempted either transabdominal more transanal however both of these would have a low likelihood of success given the radiated tissue. The drainage is manageable and the associated hemorrhage would probably stop/improve if he were not anticoagulated. He is on anticoagulation for atrial fibrillation but in the setting of metastatic disease I recommended that we discontinue his anticoagulation to improve his bleeding situation. In regards to his overall oncologic perspective his surgical pathology demonstrated [id number] but a recent CT abdomen pelvis demonstrates new likely metastatic disease in the liver. I doubt that he would be a candidate for chemotherapy especially in the setting rectal stump leak and his most reasonable option is probably hospice given that the family is struggling with care giving. Recommend that he is admitted, CT A/P rule out intra abdominal abscess, anticoagulation reversed and obtain social work involvement for hospice services. No surgical intervention anticipated at this time.
[2020-10-02 18:08] LABS: Reflexed Lactate in 2 Hours Y
[2020-10-02 18:42] LABS: Lactate 2HR (Lactic Acid Rflx) 1.1 mmol/L (0.7-2.1)
[2020-10-02 19:22] LABS: COVID19 -Nasal RAPID Negative (Negative)
[2020-10-02] MEDS: PHYTONADIONE (VIT K1) 5 MG in DEXTROSE 5 % IN WATER 50 ML 101 ML IV (19:53)
--- NOTE | 2020-10-02 22:05 | PM.HP.1 ---
History of Present Illness History of Present Illness Date Patient Seen: 10/02/20 Time Patient Seen: 22:05 Chief complaint: POST SURGERY PROBLEMS SEVERE RECTAL BLEEDING Narrative: Vin Murray is an 85-year-old male with atrial fibrillation anticoagulated on warfarin, and a recent diagnosis and treatment for rectal cancer who presents with rectal bleeding associated with prior surgery. In July he presented to the emergency department for what was initially thought to be an ileus with obstipation. He underwent a colonoscopy on August 03 where they were able to identify that he had a tumor will close to the distal end of his rectal area. He was then taken to the OR to remove the tumor and place a diverting ileostomy. He returns today due to continued rectal bleeding which she states has never really completely resolved. A CT of the abdomen and pelvis now indicates he has metastasis to the liver and the patient was seen by surgery and not determined to be a surgical candidate. He was also found to have a presacral abscess. He states he is hungry, he does use bilateral eye drops that he has to bring to the hospital, he denies shortness of breath, chest pain, he does have abdominal cramping but no abdominal pain, and he currently has mild depression associated with all the health issues that he currently has. CT of the abdomen and pelvis indicated the following: ?Postsurgical changes are redemonstrated status post distal colonic resection with a diverting left lower quadrant colostomy. The rectal stump demonstrates wall thickening and inflammatory fat stranding. There is an adjacent presacral thick-walled loculated collection suggestive of an abscess measuring approximately 4.2 x 2.6 cm in dimension. The fluid component within the collection is smaller in size compared to the prior study, now measuring 1.2 x 0.7 cm in transverse dimension. There is an adjacent loop of the distal ileum contiguous with this collection which demonstrates wall thickening. There is associated dilatation of the distal small bowel with small bowel fecalization compatible with a partial functional obstruction. There is extensive associated fat stranding. At the recommendation of General surgery he was initiated on IV Zosyn. General surgery also indicated to the patient that that was no more operative options for him and apparently had discussed hospice with patient. He is afebrile, blood pressure 116/73, heart rate 71, respiratory rate of 18, oxygen saturation 98% on room air, he weighs 75.5 kg with a BMI of 23.8. WBC is 14.7, RBC 3.63, hemoglobin 9.4, 29.9, platelet count 478, he does have a left shift of with a neutrophil count of 11,600, his INR is 6.9, sodium 137, potassium 4.0, chloride 102, bicarb 26, BUN 18, creatinine 1.10, with a GFR of greater than 60, glucose 105, lactate 1.1, calcium 9.1, liver enzymes are within normal limits however his alk-phos is elevated at 143, and COVID-19 PCR is negative. Patient History Medical History (Updated 10/03/20 @ 01:53 by NIXON Rivera) Coronary artery disease (05/24/15) [facility] current use of anticoagulant therapy (01/30/16) Pacemaker (Acute) Stage 3 chronic kidney disease (01/08/16) Surgical History (Updated 10/03/20 @ 01:53 by NIXON Rivera) Hx of ileostomy (Acute) Family & Social History Family History (Updated 10/03/20 @ 01:56 by NIXON Rivera) Father CVA (cerebral vascular accident) Mother Lung disease Social History: household members children Prior Living Arrangements House Safety & Behavioral: Feels Safe in Current Yes Environment Been Physically Hurt or No Threatened By a Person Suicidal Ideation Description None Suicide Plan Description No Plan Tobacco & Substance use: Tobacco type cigars Smoking Status Former smoker alcohol intake never alcohol intake frequency holiday/special occasion Substance Use Type does not use Meds Home Medications and Allergies Home Medications Medication Instructions Recorded Confirmed Type atorvastatin [Lipitor] 10 mg PO HS #90 tab 12/12/16 10/02/20 Rx lisinopril [Zestril] 40 mg PO QDAY #90 tab 06/03/17 10/02/20 Rx finasteride 5 mg PO DAILY 08/02/20 10/02/20 History warfarin 5 mg PO QPM #30 tab 08/11/20 10/02/20 Rx amlodipine [Norvasc] 10 mg PO QDAY 10/02/20 10/02/20 History cholecalciferol (vitamin D3) 25 mcg PO DAILY 10/02/20 10/02/20 History [Vitamin D3] latanoprost 1 drp EYE-BOTH DAILY 10/02/20 10/02/20 History Allergies Allergy/AdvReac Type Severity Reaction Status Date / Time carvedilol [CARVEDILOL] Allergy Mild Verified 10/02/20 14:34 Review of Systems Review of Systems ROS: Yes All systems reviewed with the patient and are negative except as otherwise documented Exam Vital Signs (past 8 hours): - 10/02/20 14:28 10/02/20 15:30 10/02/20 16:00 Temperature 97.1 F L Pulse Rate 77 93 H 76 Respiratory Rate 20 17 31 H Blood Pressure 159/67 H 137/68 Pulse Oximetry 91 98 100 10/02/20 16:30 10/02/20 17:00 10/02/20 18:00 Temperature Pulse Rate 66 82 69 Respiratory Rate 14 29 H 19 Blood Pressure 146/70 H 139/71 Pulse Oximetry 100 99 99 10/02/20 18:40 10/02/20 18:44 10/02/20 19:00 Temperature Pulse Rate 74 89 69 Respiratory Rate Blood Pressure 118/69 140/66 Pulse Oximetry 99 100 97 10/02/20 19:30 10/02/20 20:00 10/02/20 20:01 Temperature Pulse Rate 69 70 66 Respiratory Rate 16 23 23 Blood Pressure 141/66 H 160/70 H Pulse Oximetry 97 99 98 10/02/20 20:30 10/02/20 21:21 Temperature 96.6 F L Pulse Rate 67 72 Respiratory Rate 23 20 Blood Pressure 126/63 154/58 H Pulse Oximetry 97 99 Oxygen Delivery Method Room Air Narrative Exam Narrative: Gen: Alert, oriented, well-developed 85 y.o. male, NAD HEENT: normocephalic, atraumatic, conjunctiva clear, sclera non-icteric, oral mucosa pink and moist Neck: supple, full ROM, no JVD, trachea is midline Resp: Lungs CTA, non-labored breathing CV: RRR, no murmur or rubs Abd: soft, non-tender, normoactive BTs, left sided colostomy, appears intact w/no s/s infection Skin: no lesions or rashes, dry and intact Neuro: Alert and oriented X 4 w/no focal deficits. Speech clear and coherent. Extremities: moves all 4 extremities, is ambulatory, negative Alethea?s sign Psyche: normal mood and affect. Objective Labs Result Diagrams: 10/02/20 15:35 11/03/20 15:35 Labs: Laboratory Results - last 24 hr 10/02/20 10/02/20 10/02/20 15:35 15:35 15:35 WBC 14.7 H RBC 3.63 L Hgb 9.4 L Hct 29.9 L MCV 82.6 MCH 26.0 MCHC 31.4 RDW 16.7 H Plt Count 478 H Neut % (Auto) 79.0 H Lymph % (Auto) 11.0 L [place] % (Auto) 8.5 Eos % (Auto) 0.7 L Baso % (Auto) 0.8 Neut # (Auto) 48082 H Lymph # (Auto) 1600 [place] # (Auto) 1200 H Eos # (Auto) 100 Baso # (Auto) 100 PT 78.6 H INR 6.9 H* Sodium 137 Potassium 4.0 Chloride 102 Carbon Dioxide 26 BUN 18 Creatinine 1.10 Estimated GFR > 60.0 BUN/Creatinine Ratio 16.4 Glucose 105 Lactate Calcium 9.1 Total Bilirubin 0.4 AST 31 ALT 15 Alkaline Phosphatase 143 H Total Creatine Kinase CK-MB (CK-2) CK-MB (CK-2) Rel Index Troponin I Total Protein 8.1 Albumin 3.8 Globulin 4.3 H Albumin/Globulin Ratio 0.9 L Lipase 93 COVID-19 PCR 10/02/20 10/02/20 10/02/20 15:35 15:35 18:26 WBC RBC Hgb Hct MCV MCH MCHC RDW Plt Count Neut % (Auto) Lymph % (Auto) [place] % (Auto) Eos % (Auto) Baso % (Auto) Neut # (Auto) Lymph # (Auto) [place] # (Auto) Eos # (Auto) Baso # (Auto) PT INR Sodium Potassium Chloride Carbon Dioxide BUN Creatinine Estimated GFR BUN/Creatinine Ratio Glucose Lactate 2.1 1.1 Calcium Total Bilirubin AST ALT Alkaline Phosphatase Total Creatine Kinase 63 CK-MB (CK-2) TNP CK-MB (CK-2) Rel Index TNP Troponin I < 0.012 Total Protein Albumin Globulin Albumin/Globulin Ratio Lipase COVID-19 PCR 10/02/20 18:40 WBC RBC Hgb Hct MCV MCH MCHC RDW Plt Count Neut % (Auto) Lymph % (Auto) [place] % (Auto) Eos % (Auto) Baso % (Auto) Neut # (Auto) Lymph # (Auto) [place] # (Auto) Eos # (Auto) Baso # (Auto) PT INR Sodium Potassium Chloride Carbon Dioxide BUN Creatinine Estimated GFR BUN/Creatinine Ratio Glucose Lactate Calcium Total Bilirubin AST ALT Alkaline Phosphatase Total Creatine Kinase CK-MB (CK-2) CK-MB (CK-2) Rel Index Troponin I Total Protein Albumin Globulin Albumin/Globulin Ratio Lipase COVID-19 PCR Negative Assessment & Plan Assessment & Plan narrative: Vin Murray will be admitted for medical management of a presacral abscess and rectal bleeding. Rectal bleeding associated with the presacral rectal abscess, acute, present on admission -as recommended by surgery he will be started on IV Zosyn 3.75 Q 6 hours Rectal cancer with metastatic liver lesions, chronic, present on admission -he has been advised by surgery that they no longer have any options for him and recommended that the patient to consider hospice services. He is amenable to provision of hospice services. Atrial fibrillation anticoagulated on warfarin with a supratherapeutic INR -his INR is 6.9. He was administered vitamin K 5 mg prior to coming up to the floor. -continue to monitor daily PT INRs -cardiac telemetry Essential hypertension, chronic and well controlled -continue home dose of amlodipine 10 mg p.o. daily and lisinopril 40 mg p.o. daily Hyperlipidemia, chronic -Continue home dose of atorvastatin 10 mg p.o. at bedtime BPH, chronic -continue finasteride 5 mg p.o. daily Glaucoma, chronic Continue latanoprost 1 drop each eye daily may use patient's own medication VTE prophylaxis: Wells risk score: 1 He is actually supratherapeutic on his INR, will continue warfarin when it normalizes Consults: Dr. Meade, General Surgery, consult and involvement is appreciated. Patient is admitted under inpatient status with expected length of stay greater than 2 midnights due to severity of presenting symptoms, risk of adverse event, and complexity of treatment plan. FEN: IV saline lock, general diet, BMP and magnesium in the am. Dispo: Will need to discuss final disposition where patient can receive supportive hospice services as well as round the clock nursing care Code Status: DNR/DNI as discussed with patient Scores Wells' Criteria for PE Clinical signs and symptoms of DVT: No PE is #1 Dx or equally likely: No Heart rate > 100: No Immobilization at least 3 days or surg in previous 4 weeks: No History of PE or DVT: No Hemoptysis: No Malignancy w/Treatment within 6 months or palliative: Yes Wells' PE Score total: 1
[2020-10-02] MEDS: AMLODIPINE 5 MG TABLET 10 MG PO (22:19)
[2020-10-02] MEDS: lisinopriL 20 MG TABLET 40 MG PO (22:19)
--- NOTE | 2020-10-02 23:26 | PC.NURSE ---
1950 DOSE OF ZOSYN NOT GIVEN IN ER, PER GRAPHIC SPECIALISTROBERTO OTOOLE
[2020-10-02] MEDS: PIPERACILLIN-TAZO 3.375 GM/50 ML FROZ.PIGGY IV (23:40)
[2020-10-03 01:40] VITALS: O2SAT 98
[2020-10-03] MEDS: SODIUM CHLORIDE 0.9% 1,000 ML 125 ML IV (04:29)
[2020-10-03] MEDS: PIPERACILLIN-TAZO 3.375 GM/50 ML FROZ.PIGGY IV ×2 (04:50→11:57)
[2020-10-03 05:15] VITALS: BP 110/71; PULSE 75; RESP 18; TEMP 36.3; O2SAT 97
[2020-10-03 05:44] LABS: INR 2.1 (0.9-1.3); Prothrombin Time 23.7 SECONDS (10.1-12.7)
[2020-10-03 05:49] LABS: BUN Creatinine Ratio 12.7 (6-22); Blood Urea Nitrogen 14 mg/dL (9-20); Calcium 8.3 mg/dL (8.4-10.2); Carbon Dioxide 25 mmol/L (22-32); Chloride 108 mmol/L (98-107); Estimated Glomerular Filt Rate > 60.0 mL/min (>60); Glucose 95 mg/dL (80-110); HEMOLYSIS < 15 (0-50); Potassium 4.3 mmol/L (3.4-5.1); Sodium 137 mmol/L (137-145)
[2020-10-03 07:27] VITALS: BP 108/54; RESP 17; TEMP 36.3; O2SAT 100
[2020-10-03 07:45] VITALS: O2SAT 97
[2020-10-03 07:53] LABS: Hemoglobin 8.7 g/dL (13.5-17.5); Red Blood Cell Count 3.33 X10^6/uL (4.5-5.9); White Blood Cell Count 8.7 X10^3/uL (4.5-11.0)
[2020-10-03 07:54] LABS: Add Manual Diff / Slide Review NO; Basophils Absolute Auto 100 /uL (0-100); Basophils Percent Auto 1.3 % (0-2); Eosinophils Absolute Auto 200 /uL (0-450); Eosinophils Percent Auto 2.3 % (2-4); Hematocrit 27.3 % (41-53); Lymphocytes Absolute Auto 1400 /uL (1100-4500); Lymphocytes Percent Auto 15.5 % (25-40); Mean Corpuscular HGB Conc 31.8 % (30-36); Mean Corpuscular Hemoglobin 26.1 PG (26-34); Mean Corpuscular Volume 82.1 fL (80-100); Monocytes Absolute Auto 1000 /uL (0-900); Monocytes Percent Auto 11.5 % (3-14); Neutrophils Absolute Auto 6100 /uL (1500-7000); Neutrophils Percent Auto 69.4 % (50-75); Platelet Count 390 X10^3/uL (150-400); Red Cell Distribution Width 16.8 % (11.6-14.8)
[2020-10-03 08:13] LABS: Procalcitonin < 0.05 ng/mL (<0.5)
[2020-10-03] MEDS: FINASTERIDE 5 MG TABLET PO (09:15)
[2020-10-03 09:52] LABS: Magnesium 2.1 mg/dL (1.6-2.3)
[2020-10-03 12:35] VITALS: BP 127/67; PULSE 68; RESP 18; TEMP 36.6; O2SAT 99
--- NOTE | 2020-10-03 14:42 | PC.NURSE ---
Discharge: Pt feels ready to d/c home. Hospice has been offered and accepted. Son here at time of discharge. Priority load given to son for [facility]. Dr. Francisco gave pt and son d/c instructions. Reviewed d/c packet. [place] no [place] at this time. D/c packet reviewed. Questions answered. Pt d/c home via auto with son.
--- NOTE | 2020-10-03 14:58 | CM.IDA ---
Addendum entered by SRIDHAR Santacruz 10/03/20 15:13: Dtr Niurka: P#[phone] Original Note: Initial DCP Assessment Note Patient is an 85 yo male, resident of [facility]. Presents w/ongoing rectal bleeding PCP: Reuben Pisano Payer: [facility] According to Dr Meade's Consult Narrative: 85-year-old man with metastatic rectal cancer seen in the emergency room for failure thrive. He underwent a emergent Leonel's procedure 2 months ago for a bleeding large bowel obstruction. Pathology demonstrates [id number]. Since that time he has had dehiscence of the rectal stump and chronic intermittent bleeding from the rectal stump. He is chronically anticoagulated for atrial fibrillation INR 6.9 today Hct 30. He feels increasingly weak, and his family is struggling with caregiving. He is eating colostomy is functioning. Reviewed case w/ Dr Meade and Dr Francisco this morning, met w/patient numerous times and discussed DCP w/dtr Niurka numerous times by phone (w/patient's request). Patient tearful today, talks about losing his in March 2020 and then being diagnosed w/metastatic cancer. Patient states he enjoys being active but has felt very fatigued lately. Patient does not want to spend additional time going to/from the hospital. Patient and family agree hospice is appropriate at this time, medical providers are supportive of this. Dtr expresses some burn out from caring for patient although agreeable to having him return home and appreciative for any assist available, i.e. hospice service. Dtr requests a psychiatric consult for patient d/t comments patient has been making at home about wanting it all to be over this [employer] explained patient does not have an acute need for an inpatient psych consult. Encouraged dtr to connect w/hospice SWer and/or clerical dentist assistant support re her concerns. Placed call and referral to Hospice agency [facility] and Magdalena in referral center suggested review/consent process would begin, patient would hopefully get on the scheduled to begin service by Thursday10.08.20, sooner if available. Updated dtr Niurka and she coordinated w/her brother (whom lives in [place]) to transport patient home. P: DC home to [place] Is w/family today w/[facility] referral started SRIDHAR Santacruz
== END 2020-10-03 14:15 | disposition hospice, home (50) ==
LOC: ED 20:00 → AC 20:00
PROVIDERS: Internal Medicine; Admitting Provider Nurse Practitioner Family; Emergency Provider Nurse Practitioner Family; PCP Family Medicine; Referring Provider Nurse Practitioner Family; Visit Provider Nurse Practitioner Family
DX: K61.1 Rectal abscess (principal); C20 Malignant neoplasm of rectum; C78.7 Secondary malignant neoplasm of liver and intrahepatic bile duct; I48.91 Unspecified atrial fibrillation; Z79.01 Long term (current) use of anticoagulants; I10 Essential (primary) hypertension; E78.5 Hyperlipidemia, unspecified; N40.0 Benign prostatic hyperplasia without lower urinary tract symptoms; H40.9 Unspecified glaucoma; Z66 Do not resuscitate
CPT/HCPCS: 36415; 74177; 80048; 80053; 82550; 83605; 83690; 83735; 84145; 84484; 85025; 85610; 86850; 86900; 86901; 87635; 93005; 96361; 96374; 99284; G0378; J2543; J3430; Q9967